=== PATIENT | female | born 1990 | race Two or more races ===

== ENCOUNTER 2020-01-15 13:00 | Inpatient (IN) | payer OTHER ==
[~2020-01-15] VITALS: Ht 157.5 cm; Wt 3.2 kg
[~2020-01-15 13:00] MED LIST: CEFADROXIL500 MG/5 M; KETO10TA2 PO; ORPH100T PO; PNEU16DI2
[2020-01-15] MEDS ORDERED: SYNTHROID75 MCG PO (14:56)
[2020-01-15] MEDS ORDERED: CHILDREN'S ASPI81 MG PO (14:57)
[2020-01-20] MEDS ORDERED: SENOKOT8.6 M1 PO (11:55)
[2020-01-20] MEDS ORDERED: PREPLUS CA-FE1 EACH PO (11:55)
[2020-01-20] MEDS ORDERED: SIMETHICONE125 M1 PO (11:55)
[2020-01-20] MEDS ORDERED: IBUPROFEN800 MG PO (11:55)
== END 2020-01-20 12:59 | disposition home or self-care (01) | DRG 785 ==
LOC: O/R 01-17 09:44 → OB/GYN 01-17 09:44 → LDR 01-17 09:44 → O/R 01-17 13:34 → OB/GYN 01-17 15:41
PROVIDERS: ADMIT Obstetrics & Gynecology; ATTEND Obstetrics & Gynecology
PROC: 0UB70ZZ Excision of Bilateral Fallopian Tubes, Open Approach (ICD-10-PCS; 2020-01-17)
PROC: 4A1HXFZ Monitoring of Products of Conception, Cardiac Rhythm, External Approach (ICD-10-PCS; 2020-01-17)
PROC: 10D00Z1 Extraction of Products of Conception, Low, Open Approach (ICD-10-PCS; principal; 2020-01-17 12:00)
DX: O34.211 Maternal care for low transverse scar from previous cesarean delivery (principal); Z30.2 Encounter for sterilization; O99.284 Endocrine, nutritional and metabolic diseases complicating childbirth; E03.8 Other specified hypothyroidism; Z3A.39 39 weeks gestation of pregnancy; Z37.0 Single live birth

== ENCOUNTER 2020-11-12 23:12 | Emergency (ER) | payer OTHER ==
[~2020-11-12] VITALS: Ht 160 cm; Wt 106.6 kg
[~2020-11-12 23:12] MED LIST changes: +CHILDREN'S ASPI81 MG PO; +IBUPROFEN800 MG PO; +PREPLUS CA-FE1 EACH PO; +SENOKOT8.6 M1 PO; +SIMETHICONE125 M1 PO; +SYNTHROID75 MCG PO
[2020-11-13] MEDS ORDERED: LEVSIN/SL0.125 MG SL (04:50)
[2020-11-13] MEDS ORDERED: ZOFRAN8 MG PO (04:50)
[2020-11-13] MEDS ORDERED: PEPCID40 MG PO (04:50)
== END 2020-11-13 05:38 | disposition home or self-care (01) ==
LOC: ER 23:12
DX: K52.9 Noninfective gastroenteritis and colitis, unspecified (principal)